=== PATIENT | female | born 1960 | race Caucasian/White ===

== ENCOUNTER 2017-05-20 22:53 | Emergency (ER) | payer MEDICAID ==
[~2017-05-20] VITALS: Ht 152.4 cm; Wt 46.3 kg
--- NOTE | 2017-05-20 23:12 | NUR ---
Pt is received alert, responsive with family at bedside as she came in c/o Sore throat x1week, cough x3days, N/vomiting x3hrs with genaralized weakness. Her care continue as she is been seen by .
--- NOTE | 2017-05-20 23:27 | NUR ---
Pt remain alert, responsive as CXR and Rapid Strep Throat is been ordered. Her care continue.
[2017-05-21 00:10] VITALS: BP 153/99
--- NOTE | 2017-05-21 00:10 | NUR ---
Pt is been discharge to home after been medicated as ordered with [place] 5mg -325mg and Ceclor 500mg po. Discharge instructions given with prescriptions off Codeine Phosphate , Guaifenesin, 10mg-100mg/5ml [id number], Ceclor 500mg [id number].
== END 2017-05-21 00:16 | disposition home or self-care (01) ==
LOC: ER 22:53
DX: J02.0 Streptococcal pharyngitis (principal); I10 Essential (primary) hypertension
CPT/HCPCS: 36415; 71010; 86403; 99285; A4663